=== PATIENT | female | born 1965 | race Caucasian/White ===

== ENCOUNTER → 2016-12-02 | Outpatient (CLI) | payer BC ==
[~2016-12-02] MED LIST: CEPHALEXIN500 M1 PO; NAPROSYN500 MG PO; NKHM PO; SERTRALINE HYDR50 MG PO; VIBRAMYCIN100 MG PO
== END | disposition home or self-care (01) ==
LOC: MAMMO 12:31
DX: Z12.31 Encounter for screening mammogram for malignant neoplasm of breast (principal); Z78.0 Asymptomatic menopausal state

== ENCOUNTER → 2019-02-12 | Day surgery (SDC) | payer BC ==
[~2019-02-12] VITALS: Ht 162.5 cm; Wt 90.7 kg
[~2019-02-12] MED LIST changes: +GLUCOPHAGE500 M1 PO; +PRINIVIL10 MG PO
--- NOTE | ~2019-02-12 | O ---
[place], [place] OPERATIVE NOTE NAME: CYRUS ROD UNIT #: [id number] ROOM: DOCTOR: TYLER GARCIA MD BIRTHDATE: [birth year] DOS: 02/12/2019 HISTORY OF PRESENT ILLNESS: This is a 53-year-old patient who has presented with chief complaint of colonic screening, undergoing investigation. ALLERGIES: SULFA. PAST MEDICAL HISTORY: Diabetes, hypertension, dysphagia. PAST SURGICAL HISTORY: Uterine ablation. SOCIAL HISTORY: Smoker, nonalcohol consumer. PROCEDURE: Today's procedure part of investigation is colonoscopy plus piecemeal polypectomy. PREMEDICATION: Propofol. SCOPE: Olympus forward-viewing colonoscope 10L video. REPORT: After putting the patient in left lateral position and application of lubricant to the scope, the scope was introduced. Thereafter, under direct visualization, advanced through the length of colon without difficulty. Diverticulosis appreciated. Base of the cecum explored. Sessile polypoid lesion in sigmoid colon with piecemeal polypectomy removed. Air was suctioned out. The patient was extubated, tolerated the procedure well. IMPRESSION: Diverticulosis, sessile colonic polyp, sigmoid colon, status post piecemeal polypectomy. PLAN: High fiber fruit diet. ACTIVITY: Ad rito. FOLLOWUP: As outpatient. Thank you very much indeed. [place], [place] OPERATIVE NOTE NAME: CYRUS ROD UNIT #: [id number] ROOM: DOCTOR: TYLER GARCIA MD BIRTHDATE: [birth year] TYLER GARCIA MD CM:OPRECORD:OPERATIVE NOTE [id number] FAHAD GARCIA MD 02/24/19 0737 interface
[2019-02-12 14:16] VITALS: BP 117/63
[2019-02-12 14:30] VITALS: BP 135/45
[2019-02-12 14:46] VITALS: BP 130/51
== END | disposition home or self-care (01) ==
LOC: SDC 02-10 08:00
DX: Z12.11 Encounter for screening for malignant neoplasm of colon (principal); K63.5 Polyp of colon; K57.30 Diverticulosis of large intestine without perforation or abscess without bleeding; E11.9 Type 2 diabetes mellitus without complications; I10 Essential (primary) hypertension; F41.9 Anxiety disorder, unspecified; K21.9 Gastro-esophageal reflux disease without esophagitis; E66.9 Obesity, unspecified; Z68.34 Body mass index [BMI] 34.0-34.9, adult; F17.210 Nicotine dependence, cigarettes, uncomplicated; Z79.899 Other long term (current) drug therapy; Z98.890 Other specified postprocedural states; Z88.2 Allergy status to sulfonamides

== ENCOUNTER → 2021-02-14 | Outpatient (CLI) | payer BC | END | disposition home or self-care (01) | LOC: MAMMO 14:26 | PROVIDERS: ATTEND Internal Medicine | DX: Z12.31 Encounter for screening mammogram for malignant neoplasm of breast (principal); M19.011 Primary osteoarthritis, right shoulder ==

== ENCOUNTER → 2024-01-05 | Outpatient (CLI) | payer BC | END | disposition home or self-care (01) | LOC: MAMMO 12-30 16:00 → CT 12-30 17:00 | PROVIDERS: ATTEND Family Medicine | DX: Z12.2 Encounter for screening for malignant neoplasm of respiratory organs (principal); F17.210 Nicotine dependence, cigarettes, uncomplicated; I25.10 Atherosclerotic heart disease of native coronary artery without angina pectoris; N28.1 Cyst of kidney, acquired; K80.20 Calculus of gallbladder without cholecystitis without obstruction ==

== ENCOUNTER → 2024-01-12 | Outpatient (CLI) | payer BC | END | disposition home or self-care (01) | LOC: MAMMO 01:28 | PROVIDERS: ATTEND Student in an Organized Health Care Education/Training Program | DX: Z12.31 Encounter for screening mammogram for malignant neoplasm of breast (principal) ==

== ENCOUNTER → 2024-01-29 | Outpatient (CLI) | payer BC | END | disposition home or self-care (01) | LOC: MAMMO 13:00 | PROVIDERS: ATTEND Student in an Organized Health Care Education/Training Program | DX: N63.20 Unspecified lump in the left breast, unspecified quadrant (principal) ==

== ENCOUNTER → 2025-01-10 | Day surgery (SDC) | payer BC ==
[~2025-01-10] VITALS: Ht 162.5 cm; Wt 74.4 kg
[~2025-01-10] MED LIST changes: +Lactated Ringer's Solution 1,000 ML IV ONE; +Lactated Ringer's Solution 1,000 ML IV SCH; +Lidocaine Hydrochloride 5 ML VIAL IV ONE; +PROPOFOL 200 MG/20 ML VIAL IV ONE
[2025-01-10 06:51] VITALS: BP 123/56
[2025-01-10 07:52] VITALS: BP 95/41
[2025-01-10 08:07] VITALS: BP 102/45
[2025-01-10 08:22] VITALS: BP 107/52
== END | disposition home or self-care (01) ==
LOC: SDC 12-07 10:15
PROVIDERS: ATTEND Surgery
DX: Z12.11 Encounter for screening for malignant neoplasm of colon (principal); K63.5 Polyp of colon; K64.4 Residual hemorrhoidal skin tags; K57.30 Diverticulosis of large intestine without perforation or abscess without bleeding; E11.9 Type 2 diabetes mellitus without complications; I10 Essential (primary) hypertension; F17.210 Nicotine dependence, cigarettes, uncomplicated; Z79.899 Other long term (current) drug therapy